=== PATIENT | male | born 1965 | race American Indian/Alaskan Native ===

== ENCOUNTER 2017-09-03 08:51 | Emergency (ER) | payer BC ==
[2017-09-03 08:52] VITALS: BMI 27.7
[2017-09-03 09:33] VITALS: TEMP 98.8
--- NOTE | 2017-09-03 10:50 | ED PDOC ---
Arrival/HPI - General Chief Complaint: Flu-like Symptoms Time Seen by Provider: 09/03/17 09:14 Historian: Patient - History of Present Illness Narrative History of Present Illness (Text): 09/03/17 10:45 52-year-old male presents today with right-sided facial pain and nasal congestion bilateral ear pain sore throat and cough worsening over the past week. Patient states he gets a history of sinus infections in the past. Patient states the cough started yesterday and is dry. He is complaining of subjective fevers at home that started today. Patient denies dizziness or weakness. Denies headaches or blurred vision. Denies chest pain or shortness of breath. No abdominal pain. No nausea or vomiting. Patient denies sick contacts. No other complaints Time/Duration: 1 week Symptom Onset: Gradual Symptom Course: Worsening Quality: Aching Severity Level: 6 Past Medical History - Provider Review Nursing Documentation Reviewed: Yes - Travel History Have you recently traveled outside [place] w/in the past 3 mons?: No - Infectious Disease Hx of Infectious Diseases: None - Endocrine/Metabolic Hx Diabetes Mellitus Type 2: Yes - Psychiatric Hx Depression: No Hx Emotional Abuse: No Hx Physical Abuse: No Hx Substance Use: No - Anesthesia Hx Anesthesia: No - Suicidal Assessment Feels Threatened In Home Enviroment: No Family/Social History - Physician Review Nursing Documentation Reviewed: Yes Family/Social History: Unknown Family HX Smoking Status: Unknown If Ever Smoked Hx Alcohol Use: Yes Hx Substance Use: No Hx Substance Use Treatment: No Allergies/Home Meds Allergies/Adverse Reactions: Allergies No Known Allergies Allergy (Verified 09/03/17 09:34) Home Medications: Home Meds Medication Instructions Recorded Confirmed GlipiZIDE [Glipizide] 10 mg PO BID 09/03/17 09/03/17 MetFORMIN [glucOPHAGE] 500 mg PO BID 09/03/17 09/03/17 SITagliptin [Januvia] 100 mg PO DAILY 09/03/17 09/03/17 Review of Systems - Review of Systems Constitutional: Fevers ENT: Sore Throat, Sinus Congestion Respiratory: Cough. absent: SOB Cardiovascular: absent: Chest Pain, Palpitations Gastrointestinal: absent: Abdominal Pain, Nausea, Vomiting Musculoskeletal: absent: Back Pain, Neck Pain Skin: absent: Rash, Pruritis Neurological: absent: Dizziness Psychiatric: absent: Anxiety, Depression, Suicidal Ideation Physical Exam Vital Signs Reviewed: Yes Vital Signs Temp Pulse Resp BP Pulse Ox 09/03/17 09:30 98.8 F 98 H 20 119/84 99 Temperature: Afebrile Blood Pressure: Normal Pulse: Regular Respiratory Rate: Normal Appearance: Positive for: Well-Appearing, Non-Toxic, Comfortable Pain Distress: None Mental Status: Positive for: Alert and Oriented X 3 - Systems Exam Head: Present: Atraumatic, Tenderness (+ right frontal and maxillary sinus TTP) Pupils: Present: PERRL Extroacular Muscles: Present: EOMI Conjunctiva: Present: Normal Ears: Present: Normal, NORMAL TM. No: Erythema Mouth: Present: Moist Mucous Membranes. No: Drooling, Trismus Pharnyx: Present: Normal. No: ERYTHEMA, EXUDATE, TONSILS ENLARGED, Peritonsilar Swelling, Uvular Deviation, Muffled/Hoarse Voice Nose (External): Present: Atraumatic Nose (Internal): Present: Engorged, Clear Mucous. No: Septal Hematoma Neck: Present: Normal Range of Motion, Trachea Midline. No: Meningeal Signs, Lymphadenopathy Respiratory/Chest: Present: Clear to Auscultation, Good Air Exchange. No: Respiratory Distress, Accessory Muscle Use Cardiovascular: Present: Regular Rate and Rhythm, Normal S1, S2. No: Murmurs Abdomen: No: Tenderness Neurological: Present: GCS=15 Skin: Present: Warm, Dry, Normal Color. No: Rashes Psychiatric: Present: Alert, Oriented x 3 Medical Decision Making ED Course and Treatment: 09/03/17 10:52 52-year-old male with URI symptoms 1 week now with worsening pain right frontal and maxillary sinus with fevers. rapid flu; negative cxr; FINDINGS: LUNGS: No active pulmonary disease. PLEURA: No significant pleural effusion identified. No pneumothorax apparent. CARDIOVASCULAR: Normal. OSSEOUS STRUCTURES: No significant abnormalities. VISUALIZED UPPER ABDOMEN: Normal. OTHER FINDINGS: None. IMPRESSION: No active disease. pt with right sided sinus tenderness. vitals stable. pt reassessment; pt feeling better; no distress. will start patient on augmentin for sinusitis and tamiflu for influenza Advised taking medications as prescribed and follow-up with primary care physician within the next 2 days. Advised increasing fluids. Advised to return if symptoms worsen or persist or if new concerning symptoms develop Patient verbalizes understanding of discharge instructions and need for immediate followup. all aspects of this case were discussed the attending of record. impression; sinusitis Motrin every 6 hours as needed for pain/fever reduction Increase fluids Augmentin; 1 tablet twice daily x 10 days tamiflu; 1 tablet twice daily x 5 days Follow up primary care physician within the next 2 days Follow up with the ENT specialist within the next 2 days. Return if symptoms worsen persist or if the symptoms develop - Lab Interpretations Lab Results: Lab Results 09/03/17 10:00: Influenza Typ A,B (EIA) Negative for flu a/b - RAD Interpretation Radiology Orders: 09/03/17 09:47 CHEST TWO VIEWS (PA/LAT) [RAD] Stat - Medication Orders Current Medication Orders: Discontinued Medications Acetaminophen (Tylenol 325mg Tab) 975 mg PO STAT STA Stop: 09/03/17 09:49 Last Admin: 09/03/17 10:07 Dose: 975 mg MAR Pain/Vitals Document 09/03/17 10:07 SARAH (Rec: 09/03/17 10:07 SARAH [id number]) Pain Reassessment Is This A Pain ReAssessment? Yes Presence of Pain Presence of Pain Yes Pain Scale Used Pain Scale Used Numeric Location Pain Location Body Site Face Intensity 4 Scale Used Numeric Amoxicillin/Clavulanate Potassium (Augmentin 875 Mg-125 Mg Tab) 1 tab PO STAT STA PRN Reason: Protocol Stop: 09/03/17 12:22 Last Admin: 09/03/17 12:39 Dose: 1 tab Ibuprofen (Motrin Tab) 600 mg PO STAT STA Stop: 09/03/17 10:47 Last Admin: 09/03/17 11:03 Dose: Not Given Non-Admin Reason: Patient Refused Disposition/Present on Arrival - Present on Arrival Any Indicators Present on Arrival: No History of DVT/PE: No History of Uncontrolled Diabetes: No Urinary Catheter: No History of Decub. Ulcer: No History Surgical Site Infection Following: None - Disposition Have Diagnosis and Disposition been Completed?: Yes Diagnosis: Sinusitis Disposition: HOME/ ROUTINE Disposition Time: 11:13 Patient Plan: Discharge Patient Problems: Current Active Problems Problem Status Onset Sinusitis Acute Condition: GOOD Discharge Instructions (ExitCare): Sinusitis (ED) Additional Instructions: Motrin every 6 hours as needed for pain/fever reduction Increase fluids Augmentin; 1 tablet twice daily x 10 days tamiflu; 1 tablet twice daily x 5 days Follow up primary care physician within the next 2 days Follow up with the ENT specialist within the next 2 days. Return if symptoms worsen persist or if the symptoms develop Prescriptions: Amoxicillin/Clavulanate [Augmentin 875 MG-125 MG] 1 tab PO BID #20 tab Ibuprofen [Motrin] 600 mg PO Q6H PRN #20 tab PRN Reason: pain/fever reduction Oseltamivir [Tamiflu] 75 mg PO BID #10 cap Referrals: Gabriel Bowen [Primary Care Provider] - Follow up with primary Gregor Domingo DO [[facility]] - Follow up with primary Forms: [employer] ([place]), WORK NOTE
--- NOTE | 2017-09-03 11:42 | RAD ---
HISTORY: cough COMPARISON: No prior. TECHNIQUE: Chest PA and lateral FINDINGS: LUNGS: No active pulmonary disease. PLEURA: No significant pleural effusion identified. No pneumothorax apparent. CARDIOVASCULAR: Normal. OSSEOUS STRUCTURES: No significant abnormalities. VISUALIZED UPPER ABDOMEN: Normal. OTHER FINDINGS: None. IMPRESSION: No active disease.
[2017-09-03] MEDS ORDERED: Amoxicillin-Clav 875-125 mg Tab PO STA (12:21)
[2017-09-03 12:45] VITALS: BP 100/61; PULSE 78; RESP 18; O2SAT 100
== END 2017-09-03 12:54 | disposition home or self-care (01) ==
LOC: ED 08:51
DX: J32.9 Chronic sinusitis, unspecified (principal)